=== PATIENT | female | born 1965 ===

== ENCOUNTER 2023-03-29 10:08 | Outpatient (REF) | payer OTHER, SELFPAY | END 2023-03-29 10:09 | disposition home or self-care (01) | LOC: HO.HAP 10:08 | PROVIDERS: Visit Provider Internal Medicine | DX: Z46.1 Encounter for fitting and adjustment of hearing aid (principal); H90.42 Sensorineural hearing loss, unilateral, left ear, with unrestricted hearing on the contralateral side | CPT/HCPCS: V5266 ==